=== PATIENT | male | born 1980 | race Two or more races ===

== ENCOUNTER 2022-01-29 04:41 | Emergency (ER) | payer MEDICARE, OTHER ==
[~2022-01-29] VITALS: Ht 172.7 cm; Wt 79.4 kg
[2022-01-29] MEDS ORDERED: RISP4TAB4 PO (05:06)
[2022-01-29] MEDS ORDERED: DIVA500T2 PO (05:06)
--- NOTE | 2022-01-29 05:12 | NUR ---
PT AMBULATED TO ER C/O SI WITH NO ACTIVE PLAN AND NO HI. PT STATES HE HAS HX OF BIPOLAR D/O AND PPRESCRIBED DEPAKOTE AND RISPERADOL BUT IS NONCOMPLIANT WITH MEDICATIONS. PT STATES HE'S BEEN FEELING SAD SINCE HIS MOTHER "A COUPLE YEARS AGO". PT IS A/O X3, CALM AND COOPERATIVE AT THIS TIME. NOTIFIED [facility] IN NEED OF 1:1 SITTER, NO AVAILABLE SITTER AT THIS TIME.
--- NOTE | 2022-01-29 05:16 | NUR ---
Dr. Phan at bedside, MSE in progress.
--- NOTE | 2022-01-29 06:31 | NUR ---
PT IN BED ASLEEP, RESTING COMFORTABLY. BREATHING EVEN AND UNLABORED.
[2022-01-29] MEDS ORDERED: IV NORMAL SALINE 1000 ML BAG IV ONE (07:15)
[2022-01-29 07:36] LABS: HEMATOCRIT 43.5 % (36.7-47.1); MEAN CORPUSCULAR HEMOGLOBIN 29.1 uug (23.8-33.4); MEAN CORPUSCULAR VOLUME 86.7 fL (73.0-96.2); PLATELET COUNT (AUTO) 269 K/uL (152-348)
--- NOTE | 2022-01-29 07:40 | NUR ---
Brakfast tray provided pt ate w/ great appetite. Pt states he is not suecidal and wanted a place to sleep.
[2022-01-29 07:49] LABS: CARBON DIOXIDE 32 mmol/L (21-32); CHLORIDE 105 mmol/L (98-107); CREATININE 0.8 mg/dL (0.6-1.3); GLUCOSE 93 mg/dL (74-106); POTASSIUM 3.9 mmol/L (3.5-5.1); UREA NITROGEN, BLOOD 16 mg/dL (7-18)
[2022-01-29 07:53] LABS: ETHANOL < 3 MG/DL (0-0)
[2022-01-29 07:53] LABS: *AMPHETAMINE, URINE NEGATIVE (NEGATIVE); *CANNABINOID, URINE POSITIVE (NEGATIVE); *COCCAINE, URINE NEGATIVE (NEGATIVE); *OPIATE, URINE NEGATIVE (NEGATIVE); *PHENCYCLIDINE SCREEN,URINE NEGATIVE (NEGATIVE)
[2022-01-29 08:03] LABS: ACETAMINOPHEN < 2.0 ug/mL (10-30); ALANINE AMINOTRANSFERASE 35 U/L (16-63); ALKALINE PHOSPHATASE 108 U/L (50-136); ASPARTATE AMINOTRANSFERASE 27 U/L (15-37); BILIRUBIN,DIRECT < 0.1 mg/dL (0.0-0.2); BILIRUBIN,TOTAL 0.1 mg/dL (0.2-1.0); TOTAL PROTEIN, SERUM 6.7 g/dL (6.4-8.2)
[2022-01-29] MEDS ORDERED: NICOTINE 7 MG/24HR PATCH TD SCH (08:30)
--- NOTE | 2022-01-29 08:43 | NUR ---
Patient given written and verbal discharge instructions. Patient verbalizes understanding of instructions. Patient is ambulatory with steady gait. Refuses offer of snf placement. Patient given list of available shelters in surrounding area. Pt left ER w/ steady gait.
[2022-01-29 08:49] VITALS: BP 102/58
== END 2022-01-29 08:50 | disposition home or self-care (01) ==
LOC: ER 04:52
DX: R45.851 Suicidal ideations (principal); F31.9 Bipolar disorder, unspecified; Z59.00 Homelessness unspecified; Z91.14 Patient's other noncompliance with medication regimen; F17.210 Nicotine dependence, cigarettes, uncomplicated
CPT/HCPCS: 36415; 85025; A9150; G0480; J7040

== ENCOUNTER 2022-02-01 15:40 | Emergency (ER) | payer MEDICARE, OTHER ==
[~2022-02-01] VITALS: Ht 170.2 cm; Wt 74.8 kg
[~2022-02-01 15:40] MED LIST: DIVA500T2 PO; RISP4TAB4 PO
--- NOTE | 2022-02-01 16:10 | NUR ---
Patient ambulatory, alert and oriented x3 complaints of feeling depressed and having suicidal thoughts. Patient stated " i have thoughts of stabbing my self or overdosing". Denies pain/discomfort.
--- NOTE | 2022-02-01 16:15 | NUR ---
PT IS IN ROOM #5A. DR MARISCAL EVALUATED THE PT.
--- NOTE | 2022-02-01 16:15 | NUR ---
MD at bedside, medical screeening exam in progress.
[2022-02-01 16:27] LABS: HEMATOCRIT 39.2 % (36.7-47.1); MEAN CORPUSCULAR HEMOGLOBIN 29.8 uug (23.8-33.4); PLATELET COUNT (AUTO) 235 K/uL (152-348)
[2022-02-01 16:38] LABS: ALANINE AMINOTRANSFERASE 36 U/L (16-63); ALKALINE PHOSPHATASE 77 U/L (50-136); ASPARTATE AMINOTRANSFERASE 23 U/L (15-37); BILIRUBIN,DIRECT 0.1 mg/dL (0.0-0.2); BILIRUBIN,TOTAL 0.3 mg/dL (0.2-1.0); CARBON DIOXIDE 30 mmol/L (21-32); CHLORIDE 103 mmol/L (98-107); CREATININE 0.8 mg/dL (0.6-1.3); GLUCOSE 85 mg/dL (74-106); POTASSIUM 4.1 mmol/L (3.5-5.1); TOTAL PROTEIN, SERUM 6.6 g/dL (6.4-8.2); UREA NITROGEN, BLOOD 13 mg/dL (7-18)
[2022-02-01 16:39] LABS: ACETAMINOPHEN < 2.0 ug/mL (10-30); ETHANOL < 3 MG/DL (0-0)
[2022-02-01 17:25] LABS: *AMPHETAMINE, URINE NEGATIVE (NEGATIVE); *CANNABINOID, URINE POSITIVE (NEGATIVE); *COCCAINE, URINE NEGATIVE (NEGATIVE); *OPIATE, URINE NEGATIVE (NEGATIVE); *PHENCYCLIDINE SCREEN,URINE NEGATIVE (NEGATIVE)
--- NOTE | 2022-02-01 17:38 | NUR ---
[employer] RESIDENTIAL SERVICE TECHNICIAN BASHIR WAS CALLED TO EVALUATE THE PT. DR MARISCAL TALKED TO RUTH TO DISCUSS PT's CASE. ACCORDING TO [facility] [employer] RESIDENTIAL SERVICE TECHNICIAN BASHIR PT CAN BE ADMITED TO [facility] ON VOLUNTARY ADMISSION. PT's MEDICAL RECORDS AND ER DR's NOTES WERE FAXED TO [facility] ON .
--- NOTE | 2022-02-01 19:34 | NUR ---
pt resting with eyes closed when called his name he opens eyes denies pain, he is aware he will go to [facility].
--- NOTE | 2022-02-01 19:57 | NUR ---
call placed to [facility] at [phone] spoke with Art he states the paperwork was received and he is forwarding it to the charge nurse.
--- NOTE | 2022-02-01 20:07 | NUR ---
Art from [facility] call back has insurance questions, gave to the ER stock control clerk to answer questions.
--- NOTE | 2022-02-01 20:22 | NUR ---
Art from [facility] called information provided to him per his request. they are still pending placement.
--- NOTE | 2022-02-01 20:35 | NUR ---
Informed by Cyndy finch that [employer] insurance is down. she is calling Art at [facility] to inform him of this issue.
--- NOTE | 2022-02-01 21:15 | NUR ---
pt ambulated with steady gait to the bathroom, provided food to him per his request. per er endorsement clerk there will not be clearance on insurance till after 2 am.
[2022-02-01] MEDS: NICOTINE 7 MG/24HR PATCH TD SCH (22:14)
--- NOTE | 2022-02-02 00:10 | NUR ---
pt is calm laying in bed. pt aware we are still waiting on [facility] for placement.
--- NOTE | 2022-02-02 02:00 | NUR ---
[facility] was called. They state they are not able to accomadate this pt at this time secondary to over ratio. They will update us after 7am. pt will remain in the ER.
--- NOTE | 2022-02-02 02:34 | NUR ---
Received call back from [facility], spoke with Deirdre, patient is going to [facility], accepting MD is Dr. Hawkins, Number to report is , to call for report and room number, send patient at [phone].
--- NOTE | 2022-02-02 04:21 | NUR ---
pt has been up walking around states he cant sleep, provided more food for the pt, a bible was provided and pt was reading it and saying he is praying.
--- NOTE | 2022-02-02 06:04 | NUR ---
spoke with Perry the nursing sewing supervisor he states the pt will go to room 104-c but he says do not arrange for transport because he needs to make sure they have proper staff for this pt. the number to give report is [phone].
--- NOTE | 2022-02-02 07:53 | NUR ---
Breakfast [email or web address].
--- NOTE | 2022-02-02 08:10 | NUR ---
TRANSFER UPDATE: Outside Facility: patient voluntarily will go to [facility] [place]. Location: room [facility] RN: Mini mcconnell [id number] [facility] ambulance [id number] ([facility])
--- NOTE | 2022-02-02 08:40 | NUR ---
Patient is resting comfortably on [place] while watching TV loudly, NAD. PATIENT IS PAIN FREE AT THIS TIME.
--- NOTE | 2022-02-02 08:54 | NUR ---
SBAR given to EMT Adebayo De Jesus of [facility] unit#[id number]
[2022-02-02] MEDS: NICOTINE 7 MG/24HR PATCH TD SCH (09:00)
--- NOTE | 2022-02-02 09:00 | NUR ---
Nicodrem patch is not available in ER. Dr Wetzel notified.
--- NOTE | 2022-02-02 09:07 | NUR ---
Patient left ER in stable condition.
== END 2022-02-02 09:08 ==
LOC: ER 15:42
DX: R45.851 Suicidal ideations (principal); Z59.02 Unsheltered homelessness; F31.9 Bipolar disorder, unspecified; F17.210 Nicotine dependence, cigarettes, uncomplicated; F41.9 Anxiety disorder, unspecified; Z79.899 Other long term (current) drug therapy; Z20.822 Contact with and (suspected) exposure to COVID-19
CPT/HCPCS: 36415; 85025; 93005; A4663; A9150; G0480